=== PATIENT | female | born 1980 | race Two or more races ===

== ENCOUNTER 2018-03-22 12:47 | Emergency (ER) | payer BC ==
[~2018-03-22] VITALS: Ht 162.6 cm; Wt 102.5 kg
[2018-03-22] MEDS ORDERED: IBUPROFEN600 MG ORAL ×2 (12:58→13:29)
[2018-03-22] MEDS ORDERED: NORCO 5-325 TA1 EACH ORAL (12:58)
--- NOTE | 2018-03-22 13:08 | Emergency Room Report ---
History of Present Illness General Chief Complaint: Lower Back Pain or Injury Source: Patient Present Illness HPI Patient presents with complaints of pain to the right lower back area Started 2 days ago patient reports that she was putting up curtains when she felt the pain come on Pain is worse now with movement Denies any fall or other trauma denies any chest pain or shortness of breath pain is localized to the posterior right side superior iliac crest region Denies any numbness or tingling in the foot denies any saddle paresthesia Allergies: Coded Allergies: No Known Allergies (Unverified , 03/22/18) Patient History Past Medical History: see triage record Pertinent Family History: none Now: No Reviewed Nursing Documentation: PMH: Agreed; PSxH: Agreed Nursing Documentation-PMH Past Medical History: No Stated History Review of Systems All Other Systems: negative except mentioned in HPI Physical Exam Vital Signs Date Time Temp Pulse Resp B/P (MAP) Pulse Ox O2 Delivery O2 Flow Rate FiO2 03/22/18 12:52 97.9 79 18 109/78 99 Room Air Sp02 EP Interpretation: reviewed, normal General Appearance: no apparent distress Head: normocephalic, atraumatic Eyes: bilateral eye PERRL, bilateral eye EOMI ENT: normal pharynx Neck: full range of motion, supple Respiratory: lungs clear Cardiovascular #1: regular rate, rhythm Gastrointestinal: non tender, soft Musculoskeletal: other - Tender on palpation of the right posterior superior iliac crest region no midline step-off, Neurologic: alert, oriented x3, responsive, motor strength/tone normal Skin: normal color, no rash Lymphatic: no adenopathy Medical Decision Making Diagnostic Impression: Primary Impression: Sciatica Additional Impression: Low back pain ER Course Given the patient's history and exam It appears to be consistent with sciatic discomfort patient did not have any fall or other trauma I do not feel that imaging studies would provide any further information and patient will have initial conservative outpatient trial Please note that the patient's mom was also here with complaints and similar location however on the left side of the posterior superior iliac region. On further questioning they were not involved in any motor vehicle collision or other injury together Last Vital Signs Date Time Temp Pulse Resp B/P (MAP) Pulse Ox O2 Delivery O2 Flow Rate FiO2 03/22/18 12:52 97.9 79 18 109/78 99 Room Air Status: improved Disposition: HOME, SELF-CARE Condition: Improved Scripts Methocarbamol* (ROBAXIN-750*) 750 Mg Tablet 750 MG PO TID, #21 TAB 0 Refills Prov: Andrea Molina DO 03/22/18 Ibuprofen* (MOTRIN*) 600 Mg Tablet 600 MG ORAL THREE TIMES A DAY, #20 TAB 0 Refills Prov: Andrea Molina DO 03/22/18 Additional Instructions: Patient is provided with the discharge instructions notified to follow up with primary doctor in the next 2-3 days otherwise return to the er with any worsening symptoms. Please note that this report is being documented using [employer] technology. This can lead to erroneous entry secondary to incorrect interpretation by the dictating instrument. Andrea Molina DO Mar 22, 2018 13:08
[2018-03-22] MEDS ORDERED: Ketorolac 60mg Inj IM ONE (13:15)
[2018-03-22] MEDS ORDERED: Methocarbamol 750mg tab ORAL ONE (13:15)
[2018-03-22] MEDS ORDERED: ROBAXIN-750750 MG PO (13:29)
[2018-03-22 13:30] VITALS: BP 114/82
[2018-03-22 13:40] VITALS: BP 114/82
== END 2018-03-22 13:40 | disposition home or self-care (01) ==
LOC: EMR 13:32
DX: M54.40 Lumbago with sciatica, unspecified side (principal)
CPT/HCPCS: 96372; 99283